=== PATIENT | male | born 1970 | race Caucasian/White ===

== ENCOUNTER → 2020-06-27 | Outpatient (CLI) | payer MEDICARE, OTHER ==
--- NOTE | 2020-06-27 20:33 | EST ---
EXERCISE STRESS PROCEDURE PERFORMED: Exercise treadmill stress test. INDICATION: Chest pain. STRESS DATA: Heart rate is 82, pressure is 151/82 mmHg. Baseline EKG showed sinus mechanism. The patient exercised on the treadmill according to Paul protocol for a total of 5 minutes and achieved 7.0 METS. Max heart rate was 148, which is about 87% of maximum predicted heart rate. Maximum blood pressure was 201/86 mmHg. Clinically the patient did not have any symptoms of chest pain or chest discomfort and the EKG did not show any significant ST or T-wave abnormalities concerning for ischemia. CONCLUSION: 1. Good exercise tolerance. 2. Normal EKG in response to exercise. 3. Essentially normal stress test for the patient. MMODL / IJN: [id number] /
== END | disposition home or self-care (01) ==
LOC: RADNMMAIN 10:20
PROVIDERS: ATTEND Family Medicine
DX: R68.89 Other general symptoms and signs (principal)
CPT/HCPCS: 93017

== ENCOUNTER 2021-02-21 14:41 | Emergency (ER) | payer MEDICARE, OTHER ==
[2021-02-21 15:05] VITALS: BP 136/83; PULSE 87; RESP 17; TEMP 98.1
[2021-02-21] MEDS ORDERED: KETOROLAC 15 MG/ML 1 ML VIAL IM STA (16:00)
[2021-02-21] MEDS ORDERED: CYCLOBENZAPRINE 10 MG TAB PO STA (16:00)
--- NOTE | 2021-02-21 16:07 | ED ---
Back Pain HPI - General Chief Complaint: Back Pain/Injury Stated Complaint: Back Pain Time Seen by Provider: 02/21/21 15:07 Source: patient, RN notes reviewed Limitations: no limitations - History of Present Illness Initial Comments: 50-year-old white male, alert and oriented 4, presents to the emergency room with complaints of left leg pain for 2 weeks and right leg pain for one week. Patient states seen his primary care doctor Dr Hidalgo last week and was told to get bilateral knee braces and a back brace. Patient states has not received any relief from braces. Patient denies any incontinence, or saddle anesthesia. Patient denies any injury, denies any nausea, vomiting, diarrhea or fevers. Patient states has had this pain in the past., resolved with exercise. History of diabetes no other medical history. Patient states has not tried any Tylenol or Motrin. MD Complaint: back pain -: week(s) (2) Radiation: buttocks, left leg, right leg Severity scale (1-10): 6 Quality: other (shooting, cramping) Consistency: intermittent Improves With: sitting upright Worsens With: walking Associated Symptoms: denies other symptoms Treatments Prior to Arrival: other (b/l knee and back braces) - Related Data Home Medications Medication Instructions Recorded Confirmed Propranolol [Inderal] 10 mg PO BID 09/07/16 09/07/16 metFORMIN HCL [metFORMIN HCL ER] 1,000 mg PO DAILY 09/07/16 09/07/16 Previous Rx's Medication Instructions Recorded Cyclobenzaprine [Flexeril] 10 mg PO TID PRN #15 tab 02/21/21 Naproxen [Naprosyn] 500 mg PO Q12HR 10 Days #20 tab 02/21/21 Allergies Allergy/AdvReac Type Severity Reaction Status Date / Time environment Allergy Cough Uncoded 09/07/16 13:03 environmental Allergy Cough Uncoded 09/07/16 13:03 Review of Systems ROS Statement: Those systems with pertinent positive or pertinent negative responses have been documented in the HPI. ROS Other: All systems not noted in ROS Statement are negative. Past Medical History Past Medical History: Diabetes Mellitus History of Any Multi-Drug Resistant Organisms: None Reported Past Anesthesia/Blood Transfusion Reactions: No Reported Reaction Past Psychological History: No Psychological Hx Reported Smoking Status: Never smoker Past Alcohol Use History: None Reported Past Drug Use History: None Reported General Exam Limitations: no limitations General appearance: alert, in no apparent distress Head exam: Present: atraumatic, normocephalic, normal inspection Eye exam: Present: PERRL, EOMI. Absent: scleral icterus, conjunctival injection, periorbital swelling Neck exam: Present: normal inspection, full ROM. Absent: tenderness, meningismus, lymphadenopathy Cardiovascular Exam: Present: regular rate GI/Abdominal exam: Present: soft, normal bowel sounds. Absent: distended, te nderness, guarding, rebound, rigid Extremities exam: Present: normal inspection, full ROM, normal capillary refill. Absent: tenderness, pedal edema, joint swelling, calf tenderness Back exam: Present: normal inspection, other. Absent: tenderness (lumbar / sacral spine tenderness with palpation), CVA tenderness (R), CVA tenderness (L) Neurological exam: Present: alert, oriented X3 Psychiatric exam: Present: normal affect, normal mood Skin exam: Present: warm, dry, intact, normal color. Absent: rash Course Vital Signs 02/21/21 15:01 Temperature 98.1 F Pulse Rate 87 Respiratory 17 Rate Blood Pressure 136/83 O2 Sat by Pulse 96 Oximetry Medical Decision Making - Medical Decision Making Patient denies injury, complains of low back pain shooting down both legs started in the right leg and radiates on the back of the right thigh and then left lower back rate on the left side patient seemed primary care doctor for this already and is was prescribed back in knee braces. Patient denies any saddle anesthesias, no systemic signs of fever, nausea vomiting or diarrhea. His medical history is of diabetes and obesity. Patient directed to follow up with Dr. Hidalgo his primary care doctor for continuation of care and possible MRI. Patient will be treated with Flexeril and Naproxen for pain control. Case discussed with patient and Dr. Nicholas both agreeable to this plan. Disposition Clinical Impression: Sciatica Disposition: HOME SELF-CARE Condition: Good Instructions (If sedation given, give patient instructions): Acute Low Back Pain (ED) Additional Instructions: Take this medication as prescribed and follow-up with your doctor next week for continuation of care and possible MRI. Prescriptions: Cyclobenzaprine [Flexeril] 10 mg PO TID PRN #15 tab PRN Reason: Muscle Spasm Naproxen [Naprosyn] 500 mg PO Q12HR 10 Days #20 tab Is patient prescribed a controlled substance at d/c from ED?: No Referrals: Espinoza Hidalgo DO [Primary Care Provider] - 1-2 days Time of Disposition: 16:57
== END 2021-02-21 17:00 | disposition home or self-care (01) ==
LOC: EC 14:41
DX: M54.30 Sciatica, unspecified side (principal); E11.9 Type 2 diabetes mellitus without complications; Z79.84 Long term (current) use of oral hypoglycemic drugs
CPT/HCPCS: 99283; 96372; J1885

== ENCOUNTER → 2021-02-23 | Outpatient (CLI) | payer MEDICARE, OTHER ==
--- NOTE | 2021-02-23 14:29 | US ---
EXAMINATION TYPE: US venous doppler duplex LE BI DATE OF EXAM: 02/23/2021 12:32 PM COMPARISON: NONE CLINICAL HISTORY: 50-year-old male M79.652 Pain in left thigh,M79.651 Pain in Rt thigh. Bilat. leg cr amping SIDE PERFORMED: bilateral TECHNIQUE: The lower extremity deep venous system is examined utilizing real time linear array sonog diane with graded compression, doppler sonography and color-flow sonography. FINDINGS: VESSELS IMAGED: Common Femoral Vein Deep Femoral Vein Greater Saphenous Vein * Femoral Vein Popliteal Vein Small Saphenous Vein * Proximal Calf Veins (* superficial vessels) Right Leg: no evidence of DVT Left Leg: no evidence of DVT IMPRESSION: No evidence for DVT within the bilateral lower extremities imaged from the groin to the upper calves.
== END | disposition home or self-care (01) ==
LOC: RADUSWWP 12:05
PROVIDERS: ATTEND Family Medicine
DX: M79.652 Pain in left thigh (principal); M79.651 Pain in right thigh
CPT/HCPCS: 93970

== ENCOUNTER → 2021-02-26 | Outpatient (CLI) | payer MEDICARE, OTHER ==
--- NOTE | 2021-02-26 12:22 | XR ---
EXAMINATION TYPE: XR lumbar spine 2 or 3V DATE OF EXAM: 02/26/2021 CLINICAL HISTORY: pain TECHNIQUE: Three views of the lumbar spine are submitted. COMPARISON: None. FINDINGS: There are 5 lumbar type vertebral bodies identified. The lumbar spine shows satisfactory alignment w ithout evidence of acute fracture or dislocation. Vertebral body heights are within normal limits. Moderate degenerative change L4-5 and L5-S1. Grade 1 anterolisthesis L4 and L5. Severe facet joint ar thropathy. The overlying soft tissue appears unremarkable. IMPRESSION: No acute fracture or dislocation is seen in the lumbar spine. ICD 10 NO FRACTURE, INITIAL EVALUATION
== END | disposition home or self-care (01) ==
LOC: RADXRMAIN 11:35
PROVIDERS: ATTEND Nurse Practitioner Family
DX: M54.40 Lumbago with sciatica, unspecified side (principal)
CPT/HCPCS: 72100

== ENCOUNTER → 2021-05-09 | Outpatient (CLI) | payer MEDICARE, OTHER | END | disposition home or self-care (01) | LOC: RADMRIMAIN 13:23 | PROVIDERS: ATTEND Orthopaedic Surgery | DX: Z53.9 Procedure and treatment not carried out, unspecified reason (principal) ==

== ENCOUNTER → 2021-05-19 | Outpatient (CLI) | payer MEDICARE, OTHER ==
--- NOTE | 2021-05-19 18:33 | CONS ---
CONSULTATION REASON FOR CONSULTATION: Sleep apnea. HISTORY OF PRESENT ILLNESS: A 50-year-old male patient coming to see me for sleep apnea. Going to back in the records, I saw this patient back in September of 2016. At that time, he had issues with sleep apnea and I asked him to bring his machine for him to be re-evaluated and reinstated on his CPAP therapy. Nevertheless, the patient did not show up. Note that the patient has some intellectual impairment and he has a slow speech. However, he is appropriate. He does have some long-term intellectual limitations and he has been on SSI disability. He used to live in the [facility] and he moved to [facility] in February of 2016. Note that the patient was diagnosed having ARNAV in [facility] through a sleep center and at that time he was given CPAP unit which he used for quite some time and ultimately he lost the machine and has been off treatment since. He is trying to reinstate his CPAP treatment for now. Note that the patient has loud snoring, he quits breathing at night as reported by his family members and wakes up with a dry mouth in the morning. He has nocturia. He goes to bed around 10:30 pm wakes up 8:00 am in the morning and he is quite somnolent and sleepy during the day. Takes naps. He is trying to lose weight. He drinks around a 12 pack Mountain Dew on a daily basis to get himself stimulated. His current weight is 267 which is lower compared to a few years back. Nevertheless, he continues to have typical features of obstructive sleep apnea. No sleep paralysis. No hallucinations. No cataplexy. No dreams. No nightmares. No night terrors. No other complaints otherwise. PAST MEDICAL HISTORY: Morbid obesity, obstructive sleep apnea, hypertension, diabetes mellitus, hyperlipidemia, chronic back pain involving lumbar disk disease L3 through L5 and intellectual limitation. PAST SURGICAL HISTORY: Includes a cyst removed from the anal/perianal area and right upper extremity ORIF for a fracture. ALLERGIES: Not known. MEDICATIONS ARE: Metformin, Januvia, simvastatin, fenofibrate, Naprosyn, propranolol, and cyclobenzaprine. SOCIAL: Nonsmoker. No history of alcoholism. No history of IV drugs. FAMILY HISTORY: Positive for sleep apnea in his sister. Sister also has epilepsy. Mother has COPD. Mother has diabetes mellitus. Mother has also chronic kidney disease. REVIEW OF SYSTEMS: Fourteen-point review of system was done and positive findings are mentioned above in the history of present illness. He has cognitive impairment and speech impairment and he is able to provide history, yet overall his ability to give details and provide detailed history is quite limited due to his intellectual impairment. He is somnolent and sleepy. He drinks excessive amounts of Mountain Dew on a daily basis. His weight has been fluctuating, although is recently down. No sleepwalking. No sleep talking. No hallucinations. No cataplexy. Occasional headaches. No seizure activity has been noted. PHYSICAL EXAMINATION: VITAL SIGNS: BP is 98/71, pulse is 75, respirations 16, temperature 96.3, saturation 96% on room air. Height is 5 feet 7 inches, weight is 267, neck size is 19 inches and BMI is 41.4. [place] score is at 13. GENERAL APPEARANCE: Calm, comfortable, no acute distress. HEENT: Head is atraumatic, normocephalic. NECK: Supple. No JVD. No goiter or neck masses. Mallampati class 4. Some mild tonsillar enlargement bilaterally. LUNGS: Clear to auscultation. HEART: Heart sounds are regular rate and rhythm, normal S1, S2. No S3, S4. No murmurs. ABDOMEN: Soft, nontender, no organomegaly. EXTREMITIES: No edema, no cyanosis or clubbing. NEUROLOGIC: Awake and alert. Cognitive impairment. Intellectual impairment as discussed. IMPRESSION: 1. Symptomatic obstructive sleep apnea. The patient has been diagnosed having ARNAV back in 2016 through a sleep center in [place], [place]. He currently has symptomatic disease. He does not have any functional CPAP machine and he is requesting a re-evaluation. His current [place] score is up to 13. He has excessive hypersomnia and has typical clinical and anatomic features to suggest ARNAV. 2. Obesity with a BMI of 41.4 with interval weight. 3. Diabetes mellitus. 4. Hypertension. 5. Hyperlipidemia. 6. Chronic back pain. PLAN: 1. Set up this patient for a screening polysomnogram. 2. Set up this patient for a CPAP titration following his polysomnogram. 3. Encourage weight loss. 4. Optimize sleep hygiene measures. 5. Will continue to follow up this patient's sleep center and hopefully within the next few weeks should be able to diagnose and reinstate his CPAP treatment. We will continue to follow. MMODL / IJN: [id number] /
== END ==
LOC: SLEEP 14:49
PROVIDERS: ATTEND Internal Medicine Critical Care Medicine
DX: G47.33 Obstructive sleep apnea (adult) (pediatric) (principal); E66.01 Morbid (severe) obesity due to excess calories; E11.9 Type 2 diabetes mellitus without complications; E78.5 Hyperlipidemia, unspecified; M54.5 Low back pain; I10 Essential (primary) hypertension; Z79.84 Long term (current) use of oral hypoglycemic drugs; Z68.41 Body mass index [BMI] 40.0-44.9, adult; Z79.899 Other long term (current) drug therapy
CPT/HCPCS: 99211

== ENCOUNTER → 2021-09-29 | Outpatient (CLI) | payer MEDICARE, OTHER ==
--- NOTE | 2021-09-29 14:53 | PN ---
PROGRESS NOTE Driss is 51, diagnosed having obstructive sleep apnea. The patient was offered CPAP therapy and the patient is coming in for a compliancy check. Note that the patient was diagnosed having mild obstructive sleep apnea, AHI of 13.3. The disease was worse during REM sleep and was as high as 50.6. The patient was demonstrating severe nocturnal oxygen desaturation with a minimum pulse ox of 45%. The patient is currently utilizing an APAP unit. The patient was given a ResMed AirSense 11 and the patient's current setting is a pressure minimum of 7 and a maximum of 15. The patient is using a Vitera small-sized full-face mask. His starting pressure is at 5 with a humidity level of 6. On today's evaluation, the patient has demonstrated excellent use. He has been averaging around 7.49 hours of CPAP use per night and the AHI is down to 2.6. Leak is on the order of 5 L/minute and the average pressure delivered by the machine is around 12.4 cm of water. Clinically, the patient is feeling better, less somnolent and sleepy during the day. Sleep quality is improved and he seems to be committed to ongoing CPAP therapy. REVIEW OF SYSTEMS: Fourteen-point review of system was done. Positive findings are all mentioned in history of present illness. Otherwise negative. PHYSICAL EXAMINATION: BP is 130/74, pulse 89, respirations 16. [place] score is 10. Saturation 97% on room air. Temperature 96.9, weight is 275. GENERAL APPEARANCE: Calm, comfortable. HEAD: Atraumatic, normocephalic. Neck is supple. No JVD. No goiter or neck masses. Mallampati class IV. LUNGS: Diminished; otherwise clear. Heart sounds are regular rate and rhythm. Normal S1, S2. No S3, S4. No murmurs. ABDOMEN: Soft, nontender. No organomegaly. EXTREMITIES: No edema. No cyanosis or clubbing. IMPRESSION: 1. Obstructive sleep apnea, AHI of 13, worse during REM sleep. The patient underwent successful CPAP therapy. 2. Chronic hypersomnia, improving. [place] score is down to 10. 3. Diabetes mellitus. 4. Hypertension. 5. History of snoring, recovered with CPAP therapy. 6. Obesity with a weight of 275 and body mass index of 41. 7. Chronic back pain. 8. Hyperlipidemia. PLAN: 1. Continue CPAP therapy at the same level of pressure. 2. Continue the Vitera small-sized full-face mask. 3. Compliance data was checked and the treatment is successful. 4. See me back in one year's time in followup. No other active issues for now. MMODL / IJN: [id number] /
== END ==
LOC: SLEEP 13:19
PROVIDERS: ATTEND Internal Medicine Critical Care Medicine
DX: G47.33 Obstructive sleep apnea (adult) (pediatric) (principal); E11.9 Type 2 diabetes mellitus without complications; I10 Essential (primary) hypertension; E66.9 Obesity, unspecified; M54.50 Low back pain, unspecified; E78.5 Hyperlipidemia, unspecified; Z68.41 Body mass index [BMI] 40.0-44.9, adult; Z99.89 Dependence on other enabling machines and devices

== ENCOUNTER → 2022-06-08 | Outpatient (CLI) | payer MEDICARE, OTHER ==
--- NOTE | 2022-06-08 15:07 | P.PN ---
Subjective Progress Note Date: 06/08/22 On 06/08/2022, another compliancy evaluation on this patient.. This patient is known to have obstructive sleep apnea the patient has an AHI of 13 worse during REM sleep. He was offered CPAP therapy. Initially he did not demonstrate compliance. The patient was having some medical issues. This did not qualify for CPAP. However, subsequent compliancy evaluation was done in September 2021 showed excellent usage as the patient was averaging approximately 7 hours of CPAP use per night and history was extremely successful. The [employer] company, [employer] is considering another CPAP titration on this patient. Nevertheless, on today's compliancy and based on a 30 day compliancy and data collected between 05/09/2022 and 06/07/2022 showed that the patient has been utilizing the machine every night and he has achieved more than 4 hours of usage 90% of the time. The average machine use is around 8 hours and 2 minutes. The patient remains on a Pap more than a minimum pressure of 7 and a maximum pressure of 15 with a C-Flex of 3. The AHI is down to 1.8. Leak is in order of 7 L per minute and the P95 pressure from the machine as recorded his at 13.6 cm of water. He is using a fullface mask and the patient is extremely compliant. Has no complaint. No chest pain. No shortness of breath. No major hypersomnia and sleepiness during the day. He continues to benefit from treatment. Objective - Exam The blood pressure is 145/94 with a pulse of 85 and respiration of 18 and the weight is at 282 with a temperature 97.3 and the patient has an [place] score of 11. Oxygenation is 97% on room air. The patient appeared well nourished and normally developed. Vital signs as documented. Head exam is unremarkable. No scleral icterus or corneal arcus noted. Neck is without jugular venous distension, thyromegaly, or carotid bruits. Carotid upstrokes are brisk bilaterally. Lungs are clear to auscultation and percussion. Cardiac exam reveals the PMI to be normally sized and situated. Rhythm is regular. First and second heart sounds normal. No murmurs, rubs or gallops. Abdominal exam reveals normal bowel sounds, no masses, no organomegaly and no aortic enlargement. Extremities are nonedematous and both femoral and pedal pulses are normal.Examination of the skin revealed no evidence of significant rashes, suspicious appearing nevi or other concerning lesions.Neurologically, the patient is awake and alert and the patient does not have any focal neurological deficit. Cranial nerves are essentially intact. Assessment and Plan Plan: Obstructive sleep apnea, AHI of 13, worse during REM and the patient has demonstrated excellent compliance over the past months. Clinically improved. Chronic hypersomnia, improved Obesity, current body weight is 282 pounds. Hypertension Diabetes mellitus Chronic back pain Hyperlipidemia Plan We will contact the DME to see there is a need for another titration. From the sleep standpoint, the patient has demonstrated excellent compliance and clinical response to CPAP therapy and I would suggest maintaining the same APAP pressures for now with a full face mask. The patient will see back in a year's time. We'll do a CPAP titration only if this is something that is needed by the insurance to approve his CPAP payments. Encourage further weight loss. Sleep hygiene measures are good. Hypersomnia has recovered. No snoring. Refill supplies. We'll continue to follow.
== END ==
LOC: SLEEP 13:43
PROVIDERS: ATTEND Internal Medicine Critical Care Medicine
DX: G47.33 Obstructive sleep apnea (adult) (pediatric) (principal); E66.9 Obesity, unspecified; I10 Essential (primary) hypertension; E11.9 Type 2 diabetes mellitus without complications; G89.29 Other chronic pain; M54.50 Low back pain, unspecified; E78.5 Hyperlipidemia, unspecified; Z99.89 Dependence on other enabling machines and devices; Z91.09 Other allergy status, other than to drugs and biological substances

== ENCOUNTER → 2023-07-28 | Outpatient (CLI) | payer MEDICARE, OTHER ==
--- NOTE | 2023-07-28 13:20 | XR ---
3 views right knee. DATE: 07/28/2023. COMPARISON: None available. CLINICAL HISTORY: Chronic pain. IMPRESSION: There is no fracture, subluxation or dislocation. There is moderate degenerative joint space narrowing in the medial compartment and mild in the latera l compartment. [id number] patellofemoral compartment osteophytosis is also seen. Marginal spurr ing is seen around the joint margins. There is a large loose body within the suprapatellar space measuring 3.7 x 1.8 cm in diameter. No sig nificant fluid is otherwise seen.
== END | disposition home or self-care (01) ==
LOC: RADXRMAIN 10:58
PROVIDERS: ATTEND Family Medicine
DX: M17.0 Bilateral primary osteoarthritis of knee (principal); M23.41 Loose body in knee, right knee

== ENCOUNTER → 2023-12-26 | Outpatient (CLI) | payer MEDICARE, OTHER | END | disposition home or self-care (01) | LOC: LABPAT 12:22 | PROVIDERS: ATTEND Orthopaedic Surgery | DX: Z01.812 Encounter for preprocedural laboratory examination (principal); M17.11 Unilateral primary osteoarthritis, right knee; Z22.322 Carrier or suspected carrier of Methicillin resistant Staphylococcus aureus | CPT/HCPCS: 87070 ==

== ENCOUNTER → 2024-05-31 | Outpatient (CLI) | payer MEDICARE | END | disposition home or self-care (01) | LOC: LABPAT 09:25 | PROVIDERS: ATTEND Orthopaedic Surgery | DX: Z01.812 Encounter for preprocedural laboratory examination (principal); M17.12 Unilateral primary osteoarthritis, left knee; Z22.322 Carrier or suspected carrier of Methicillin resistant Staphylococcus aureus | CPT/HCPCS: 87070 ==

== ENCOUNTER → 2024-07-11 | Outpatient (CLI) | payer MEDICARE, OTHER ==
[2024-07-11 15:27] LABS: Basophils # (A) 0.07 X 10*3/uL (0.00-0.10); Basophils % (A) 0.8 %; Eosinophils # (A) 0.49 X 10*3/uL (0.04-0.35); Eosinophils % (A) 5.4 %; HCT 46.7 % (39.6-50.0); Lymphocytes # (A) 2.51 X 10*3/uL (0.90-5.00); Lymphocytes % (A) 27.7 %; MCH 26.8 pg (27.0-32.0); MCHC 32.1 g/dL (32.0-37.0); MCV 83.5 FL (80.0-97.0); Mean Platelet Volume 9.4 FL (9.5-12.2); Monocytes # (A) 0.57 X 10*3/uL (0.20-1.00); Monocytes % (A) 6.3 %; NRBC Per 100 WBC 0 X 10*3/uL (0.00-0.01); Neutrophils # (A) 5.25 X 10*3/uL (1.80-7.70); Neutrophils % (A) 57.8 %; Platelet Count 301 X 10*3/uL (140-440); RBC 5.59 X 10*6/uL (4.40-5.60); RDW 13.2 % (11.5-14.5); WBC 9.07 X 10*3/uL (4.50-10.00)
[2024-07-11 15:52] LABS: BUN/Creat Ratio 32.17 Ratio (12.00-20.00); Blood Urea Nitrogen 19.3 mg/dL (9.0-27.0); Calcium 9.3 mg/dL (8.7-10.3); Carbon Dioxide 27.4 mmol/L (21.6-31.8); Chloride 97 mmol/L (96-109); Glucose 138 mg/dL (70-110); Potassium 4.5 mmol/L (3.5-5.5); Sodium 136 mmol/L (135-145)
[2024-07-11 16:07] LABS: INR 0.99 sec (0.93-1.11); Prothrombin Time 10.7 sec (9.9-11.9)
== END | disposition home or self-care (01) ==
LOC: LABPAT 09:31
PROVIDERS: ATTEND Orthopaedic Surgery
DX: M17.12 Unilateral primary osteoarthritis, left knee (principal)
CPT/HCPCS: 36415; 80048; 85025; 85610

== ENCOUNTER 2024-07-16 07:41 | Observation (INO) | payer MEDICARE, OTHER ==
[2024-07-11 09:09] VITALS: BMI 41.0
--- NOTE | 2024-07-15 13:04 | HP ---
HISTORY AND PHYSICAL DATE OF SCHEDULED SURGERY: 07/16/2024. HISTORY OF PRESENT ILLNESS: Drsis Zayas is a 53-year-old gentleman, seen with symptomatic left knee osteoarthritis. We discussed options regarding treatment. He elected to proceed with left total knee arthroplasty. Consents obtained. Medical clearance was provided by Mic Tubbs. PAST MEDICAL HISTORY: Hypertension, hyperlipidemia, and [id number] diabetes. PAST SURGICAL HISTORY: Right total knee arthroplasty. DAILY MEDICATIONS: 1. Januvia. 2. Metformin. 3. Propranolol. 4. Simvastatin. 5. Ibuprofen. ALLERGIES: None. SOCIAL HISTORY: Denies tobacco use. PHYSICAL EVALUATION OF LEFT KNEE: His range of motion is negative 1/2 to 130 degrees. Tenderness along the medial joint line. Mild effusion. Crepitance along the medial patellofemoral compartments with range of motion. Pain with patellofemoral compression. Ligaments stable. Hip rotation without pain. Distal neurovascular exam is intact. IMAGING STUDIES: Radiographs of the left knee reveal severe osteoarthritic changes. IMPRESSION: 1. Left knee osteoarthritis. 2. Hypertension. 3. Hyperlipidemia. 4. Vru-mwhiyiv-geshqjnsu diabetes. PLAN: Left total knee arthroplasty. MMODL / IJN: [id number] /
[~2024-07-16 07:41] MED LIST: HYDROmorphone 0.5 MG/0.5 ML SYRINGE IVP PRN; TRANEXAMIC 1,000 MG/100ML-NACL 1,000 MG in SALINE 1 100ML.BAG IVPB PRN
[2024-07-16] MEDS: IV FLUID CONTINUATION 1,000 ML IV ONE ×2 (08:00→12:43)
[2024-07-16] MEDS: DEXAMETHASONE SOD PHOSPHATE 4 MG/ML 1 ML VIAL IV ONE (08:14)
[2024-07-16] MEDS: MELOXICAM 7.5 MG TAB PO PRN (08:14)
[2024-07-16] MEDS: ONDANSETRON 4 MG/2 ML VIAL IVP ONE (08:14)
[2024-07-16] MEDS: SCOPOLAMINE 1 MG/72 HR PATCH TRANSDERM ONE (08:14)
[2024-07-16] MEDS: LACTATED RINGERS 1,000 ML IV SCH ×2 (08:14→14:27)
[2024-07-16] MEDS: ACETAMINOPHEN TAB 500 MG TAB PO PRN (08:15)
[2024-07-16] MEDS: fentaNYL (PF) 50 MCG/ML 2 ML AMP IVP PRN (08:48)
[2024-07-16] MEDS: MIDAZOLAM 2 MG/2 ML VIAL IV PRN (08:48)
[2024-07-16 08:57] LABS: Glucose,Whole Blood 129 mg/dL (70-110)
--- NOTE | 2024-07-16 09:21 | P.ANPRN ---
Procedure Note - Anesthesia - Nerve Block Performed Left Adductor Canal Infusion Time Out Performed: Yes Date of Procedure: 07/16/24 Procedure Start Time: 08:47 Procedure Stop Time: 08:57 Location of Patient: PreOp Indication: Acute Post-Operative Pain, Requested by Surgeon Sedation Type: Sedate with meaningful contact maintained Preparation: Sterile Prep, Sterile Dressing Position: Supine Catheter: Indwelling Needle Types: Pajunk Needle Gauge: 18 Ultrasound used to visualize needle placement: Yes Ultrasound used to observe medication spread: Yes Injectate: 0.5% Ropivacaine (see comment for volume) (20 ml + 10ml NS) Blood Aspirated: No Pain Paresthesia on Injection Noted: No Resistance on Injection: Normal Image Stored and Saved: Yes Events: Uneventful and Well Tolerated
--- NOTE | 2024-07-16 09:22 | P.ANPRN ---
Procedure Note - Anesthesia - Nerve Block Performed Left iPack Single Time Out Performed: Yes Date of Procedure: 07/16/24 Procedure Start Time: 08:58 Procedure Stop Time: 09:03 Location of Patient: PreOp Indication: Acute Post-Operative Pain, Requested by Surgeon Sedation Type: Sedate with meaningful contact maintained Preparation: Sterile Prep Position: Right Lateral Needle Types: Pajunk Needle Gauge: 21 Ultrasound used to visualize needle placement: Yes Ultrasound used to observe medication spread: Yes Injectate: 0.5% Ropivacaine (see comment for volume) (20 ml + 10 ml NS + 4 mg Dexamethasone) Blood Aspirated: No Pain Paresthesia on Injection Noted: No Resistance on Injection: Normal Image Stored and Saved: Yes Events: Uneventful and Well Tolerated
[2024-07-16] MEDS ORDERED: KETAMINE HCL IN 0.9 % NACL 50 MG/5 ML SYRINGE ONE (09:57)
[2024-07-16] MEDS ORDERED: HYDROmorphone (PF) 1 MG/ML ONE (09:57)
[2024-07-16] MEDS ORDERED: LIDOCAINE 1% INJ 10MG/ML (20 ML MDV) ONE (09:57)
[2024-07-16] MEDS ORDERED: TRANEXAMIC 1,000 MG/100ML-NACL PREMIX BAG ONE (09:57)
[2024-07-16] MEDS ORDERED: SUCCINYLCHOLINE CHLORIDE 200 MG/10 ML VIAL IV ONE (09:57)
[2024-07-16] MEDS ORDERED: DEXAMETHASONE SOD PHOSPHATE 4 MG/ML 1 ML VIAL ONE (09:57)
[2024-07-16] MEDS ORDERED: fentaNYL (PF) 50 MCG/ML 2 ML AMP ONE (09:57)
[2024-07-16] MEDS ORDERED: ROPIVACAINE 5 MG/ML 30 ML VIAL ONE (09:57)
[2024-07-16] MEDS ORDERED: PROPOFOL 10 MG/ML 20 ML VIAL IV ONE (09:57)
[2024-07-16] MEDS ORDERED: SODIUM CHLORIDE 0.9% (PF) 10 ML VIAL ONE (09:57)
[2024-07-16] MEDS: ceFAZolin 1,000 MG in SODIUM CHLORIDE 0.9% 1,000 ML IRRIGATION ONE (10:32)
[2024-07-16] MEDS ORDERED: ONDANSETRON 4 MG/2 ML VIAL IVP PRN (11:48)
[2024-07-16] MEDS ORDERED: HYDROcodone/APAP 5-325MG 1 EACH TAB PO PRN (11:48)
[2024-07-16] MEDS ORDERED: HYDROmorphone 0.5 MG/0.5 ML SYRINGE IVP PRN ×2 (11:48)
[2024-07-16] MEDS ORDERED: NALOXONE 0.4 MG/ML 1 ML VIAL IV PRN (11:48)
[2024-07-16] MEDS ORDERED: HYDROmorphone 1 MG/ML 1 ML SYRINGE IVP PRN (11:48)
--- NOTE | 2024-07-16 11:48 | P.OP ---
Date of Procedure: 07/16/24 Preoperative Diagnosis: Left knee osteoarthritis Postoperative Diagnosis: Left knee osteoarthritis Procedure(s) Performed: Left total knee arthroplasty Implants: 1. DePuy attune size 6 left cruciate retaining cemented femur 2. DePuy attune size 6 fixed-bearing cemented tibial baseplate 3. DePuy attune size 6 fixed-bearing cruciate retaining 8 mm polyethylene tibial insert 4. DePuy attune 38 mm all polyethylene cemented patella Anesthesia: GETA, regional (Adductor canal catheter, iPAQ block) Surgeon: [facility] Coordinator #1: Thanh Mac Estimated Blood Loss (ml): 45 Pathology: none sent Condition: stable Disposition: PACU Indications for Procedure: 53-year-old patient seen with symptomatic left knee osteoarthritis. After having treatment options discussed, he elected to proceed with total knee arthroplasty. Operative Findings: See description of procedure Description of Procedure: Patient was taken to the operative suite after having an adductor canal catheter placed by the department of anesthesia. Patient underwent a general anesthetic by the department of anesthesia. Patient was given preoperative IV intake antibiotics and TXA. A well-padded tourniquet was placed about the left lower extremity. The lower extremity was then prepped and draped in the normal sterile orthopedic fashion. The extremity was elevated, a tourniquet was ins ufflated to 300. A standard anterior incision was made sharply through skin. Dissection was taken down through the subcutaneous soft tissues down to the extensor mechanism. A medial arthrotomy was performed, patella was everted and knee was flexed. There was advanced osteoarthritis noted. I introduced my distal intramedullary femoral drill. I then introduced the distal femoral cutting jig. Erasto CHINO secured the cutting jig with 2 pins. I held retractors in position while Erasto CHINO performed the distal femoral resection through the guide area we now removed her distal femoral cutting guide. We now placed our 4-in-1 femoral cutting block and positioned and it was secured with 2 pins by Erasto CHINO while I held the block in position. The distal femoral finishing was now completed. A proximal tibial cutting guide was positioned. I held the guide in the appropriate position with both hands well Erasto CHINO inserted stabilizing pins into the guide. Proximal tibial cut was made. We now placed a trial femoral component into position, along with an appropriate size tibial tray and insert. We now took the knee through range of motion and had full extension good flexion and good overall soft tissue balance noted. The patella was everted and stabilized with 2 towel clips held by Erasto CHINO while I performed a flush with patellar quad tendon utilizing a fresh sawblade. We templated the patella, appropriate drill holes were made. An appropriate trial patella was positioned, knee was taken through full range of motion with the patella tracking very nicely. The trial patella was removed. Drill holes were made through the femoral component. All trial components were removed after marking off the appropriate rotation of the tibia. Retractors were now positioned along the proximal tibia. An appropriate keel punch was made with the appropriate size tibial guide by myself on Erasto CHINO assisted by holding retractors. At this point appropriate size implants were chosen and opened. The joint was irrigated copiously with pulse lavage mechanical irrigation. The wound was irrigated with pulse lavage mechanical irrigation. We mixed antibiotic methylmethacrylate. We placed the knee into flexion. We placed multiple retractors assisted by Erasto CHINO to expose the proximal tibia. Once the methyl methacrylate was ready, the tibial component was cemented into place removing any excess methylmethacrylate form by both myself and Erasto CHINO. The femoral component was cemented into place removing the removing any excess methylmethacrylate performed by both myself and Erasto CHINO. We then inserted the appropriate size polyethylene tibial insert. We made sure that it was locked into position. We took the knee into full extension, and then back in a flexion making sure we had removed any excess methylmethacrylate. The patellar component was then cemented down and secured with clamp. Excess methylmethacrylate removed. We kept the knee in full extension, patellar clamp in position until methylmethacrylate had hardened. Once it had hardened the patellar clamp was removed. The knee was taken through full range of motion. The patella tracked nicely. There was good soft tissue balancing. The tourniquet was now released. Additional hemostasis was achieved via electrocautery. A second gram of TXA was given. The wound again was irrigated with pulse lavage mechanical irrigation. The extensor mechanism was repaired with Ethibond suture. We checked the repair with range of motion and it was stable. The subcutaneous soft tissues were repaired with Vicryl in layers. The skin was approximated with pernio/Dermabond. Sterile dressings were applied followed by loose web roll and Cameron bandage. The patient was transferred to a bed, and taken to recovery in stable and satisfactory condition. Erasto CHINO assisted with this complex procedure.
[2024-07-16 12:36] LABS: Glucose,Whole Blood 196 mg/dL (70-110)
[2024-07-16] MEDS: ROPIVACAINE 1,100 MG, SODIUM CHLORIDE 0.9% 500 ML 330 ML, EMPTY PAIN BALL 1 EACH MISCELLANE PRN (13:12)
--- NOTE | 2024-07-16 13:29 | XR ---
EXAMINATION TYPE: XR knee limited LT DATE OF EXAM: 07/16/2024 1:14 PM CLINICAL INDICATION: Male, 53 years old with history of Evaluation for Postop abnormality and alignme nt; [facility] COMPARISON: None. TECHNIQUE: XR knee limited LT; examined in Frontal, lateral projections. FINDINGS: Status post total knee arthroplasty changes with hardware in appropriate alignment and in tact. No evidence of fracture. Subcutaneous lucencies and lucencies within the joint consistent with surgical changes. IMPRESSION: Status post total knee arthroplasty changes with hardware intact and appropriate alignment. No fractu res identified.
--- NOTE | 2024-07-16 15:08 | P.CONS ---
History of Present Illness - Reason for Consult Type 2 diabetes mellitus - History of Present Illness Patient is admitted for left knee arthroplasty patient is still coming out of anesthesia and not complaining of any pain at this time patient had any fever chills nausea vomiting abdominal pain dysuria patient has history of diabetes mellitus and hypertension blood pressure is slightly elevated at this time. REVIEW OF SYSTEMS: All other systems are negative except those mentioned in the HPI PHYSICAL EXAMINATION: GENERAL: The patient is drowsy and oriented x3, not in any acute distress. Well developed, well nourished. HEENT: Pupils are round and equally reacting to light. EOMI. No scleral icterus. No conjunctival pallor. Normocephalic, atraumatic. No pharyngeal erythema. No thyromegaly. CARDIOVASCULAR: S1 and S2 present. No murmurs, rubs, or gallops. PULMONARY: Chest is clear to auscultation, no wheezing or crackles. ABDOMEN: Soft, nontender, nondistended, normoactive bowel sounds. No palpable organomegaly. MUSCULOSKELETAL: No joint swelling or deformity. EXTREMITIES: No cyanosis, clubbing, or pedal edema. NEUROLOGICAL: Gross neurological examination did not reveal any focal deficits. SKIN: No rashes. Assessment and plan -Left knee arthroplasty: Pain management as per primary service due to prophylaxis as per primary service -Type 2 diabetes mellitus patient will be resumed on her home regimen of Januvia, metformin, Farxiga and will add sliding scale. -Hypertension: Patient is on 5 mg of lisinopril which will be a started as patient blood pressure is still elevated in the perioperative. -Gastroesophageal reflux disease -Sleep apnea uses CPAP machine at home which he patient will be resumed and continue -Hyperlipidemia resumed on statin DVT prophylaxis: As per orthopedic surgery's Past Medical History Past Medical History: Diabetes Mellitus, GERD/Reflux, Hyperlipidemia, Hypertension, Osteoarthritis (OA), Skin Disorder, Sleep Apnea/CPAP/BIPAP Additional Past Medical History / Comment(s): "My heart beats fast", Psoriasis, uses CPAP, "occasional bad headaches". History of Any Multi-Drug Resistant Organisms: None Reported Past Surgical History: Joint Replacement, Orthopedic Surgery Additional Past Surgical History / Comment(s): ORIF distal right arm, pilonidal cyst removed, total right knee replacement. Past Anesthesia/Blood Transfusion Reactions: No Reported Reaction Additional Past Anesthesia/Blood Transfusion Reaction / Comm: Thinks "may have had a blood transfusion with arm surgery", no known problems with blood transfusion. Past Psychological History: No Psychological Hx Reported Additional Psychological History / Comment(s): Has trouble reading some words, needs help spelling, was in special ed courses during school. Smoking Status: Never smoker Past Alcohol Use History: None Reported Past Drug Use History: None Reported - Past Family History Mother Family Medical History: Diabetes Mellitus, Renal Disease Additional Family Medical History / Comment(s): Patient states does not really know much family hx. Father Additional Family Medical History / Comment(s): Dad in penitentiary approx age 70's. Medications and Allergies Home Medications Medication Instructions Recorded Confirmed Type Propranolol [Inderal] 10 mg PO BID@0800,2200 09/07/16 07/16/24 History metFORMIN HCL [metFORMIN HCL ER] 1,000 mg PO BID@0800,1600 09/07/16 07/11/24 History Cyclobenzaprine [Flexeril] 10 mg PO BID@0800,1600 01/06/24 07/11/24 History Fenofibrate 160 mg PO DAILY 01/06/24 07/11/24 History Magnesium 250 mg PO DAILY 01/06/24 07/11/24 History Simvastatin [Zocor] 40 mg PO HS 01/06/24 07/11/24 History sitaGLIPtin [Januvia] 100 mg PO QAM 01/06/24 07/11/24 History Dapagliflozin Propanediol [Farxiga] 10 mg PO QAM 07/11/24 07/11/24 History Ibuprofen 600 mg PO BID 07/11/24 07/11/24 History lisinopriL [Zestril] 5 mg PO HS 07/11/24 07/11/24 History Allergies Allergy/AdvReac Type Severity Reaction Status Date / Time No Known Allergies Allergy Verified 07/16/24 08:08 Physical Exam Vitals: Vital Signs Temp Pulse Pulse Resp BP Pulse Ox 07/16/24 14:00 97.5 F L 84 18 150/86 93 L 07/16/24 13:37 84 16 153/86 94 L 07/16/24 13:21 84 16 142/82 94 L 07/16/24 13:07 83 16 152/83 94 L 07/16/24 12:52 85 16 148/87 94 L 07/16/24 12:37 88 16 175/86 96 07/16/24 12:22 88 16 166/80 97 07/16/24 12:07 97.3 F L 87 15 153/74 95 07/16/24 09:05 68 18 105/57 96 07/16/24 08:11 97.5 F L 69 18 124/85 98 Intake and Output 07/16/24 07/16/24 07/16/24 06:59 14:59 22:59 Intake Total 1301 Output Total 45 Balance 1256 Intake: IV 1301 Output: Estimated Blood Loss 45 Other: Weight 117.1 kg Results Labs: Abnormal Lab Results - Last 24 Hours (Table) 07/16/24 07/16/24 Range/Units 08:36 12:34 POC Glucose (mg/dL) 129 H 196 H (70-110) mg/dL
[2024-07-16] MEDS: metFORMIN 500 MG TAB PO SCH (15:25)
[2024-07-16] MEDS ORDERED: ceFAZolin 3 GM in SODIUM CHLORIDE 0.9% 100 ML IVPB SCH (16:00)
[2024-07-16 16:33] LABS: Glucose,Whole Blood 181 mg/dL (70-110)
[2024-07-16] MEDS: INSULIN ASPART (NovoLOG) 100 UNIT/ML VIAL SQ SCH (16:54)
[2024-07-16] MEDS: lisinopriL 5 MG TAB PO SCH (20:09)
[2024-07-16] MEDS: ASPIRIN 325 MG TAB PO SCH (20:09)
[2024-07-16] MEDS: SENNOSIDES-DOCUSATE SODIUM 1 EACH TAB PO SCH (20:09)
[2024-07-16] MEDS: ATORVASTATIN 20 MG TAB PO SCH (20:09)
[2024-07-16 21:08] LABS: Glucose,Whole Blood 168 mg/dL (70-110)
[2024-07-16] MEDS: PROPRANOLOL 10 MG TAB PO SCH (22:23)
[2024-07-17 05:39] LABS: Glucose,Whole Blood 141 mg/dL (70-110)
[2024-07-17] MEDS: HYDROcodone/APAP 7.5-325MG 1 EACH TAB PO PRN (06:10)
[2024-07-17 08:29] LABS: Basophils # (A) 0.03 X 10*3/uL (0.00-0.10); Basophils % (A) 0.2 %; Eosinophils # (A) 0.06 X 10*3/uL (0.04-0.35); Eosinophils % (A) 0.5 %; HCT 42.1 % (39.6-50.0); Lymphocytes # (A) 1.87 X 10*3/uL (0.90-5.00); Lymphocytes % (A) 15.2 %; MCH 27.6 pg (27.0-32.0); MCHC 33.3 g/dL (32.0-37.0); MCV 82.9 FL (80.0-97.0); Mean Platelet Volume 9.4 FL (9.5-12.2); Monocytes # (A) 0.81 X 10*3/uL (0.20-1.00); Monocytes % (A) 6.6 %; NRBC Per 100 WBC 0 X 10*3/uL (0.00-0.01); Neutrophils # (A) 9.41 X 10*3/uL (1.80-7.70); Neutrophils % (A) 76.3 %; Platelet Count 273 X 10*3/uL (140-440); RBC 5.08 X 10*6/uL (4.40-5.60); RDW 13.1 % (11.5-14.5); WBC 12.33 X 10*3/uL (4.50-10.00)
--- NOTE | 2024-07-17 08:30 | P.PN ---
Progress Note - Text Progress Note Date: 07/17/24 Postoperative day # 1 status post total knee arthroplasty, and adductor canal catheter placed for postoperative analgesia, currently at ropivacaine 0.2% 8 mL per hour and continuous infusion, visual analogue scale is 3/10, patient using oral pain medication for breakthrough pain. Assessment and plan= Acute postoperative pain, adductor canal catheter for pain control, pain is well controlled we'll continue the same management.
[2024-07-17] MEDS: LINAGLIPTIN 5 MG TABLET PO SCH (09:32)
[2024-07-17] MEDS: FENOFIBRATE 160 MG TAB PO SCH (09:32)
[2024-07-17] MEDS: DAPAGLIFLOZIN PROPANEDIOL 10 MG TABLET PO SCH (09:32)
--- NOTE | 2024-07-17 10:22 | P.PN ---
Subjective Progress Note Date: 07/17/24 Principal diagnosis: Status post left total knee arthroplasty Patient evaluated at bedside today, he is resting comfortably. He did ambulate with therapy today just in the room, he does note some increased pain with weightbearing. Pain catheter seems to be working well. Denies any headaches, lightheadedness, chest pain or shortness of breath Objective - Vital Signs Vital signs: Vital Signs Temp 97.8 F 07/17/24 07:24 Pulse 93 07/17/24 08:00 Resp 18 07/17/24 08:00 BP 125/83 07/17/24 07:24 Pulse Ox 93 L 07/17/24 07:24 FiO2 Intake & Output 07/16/24 07/17/24 07/17/24 18:59 06:59 18:59 Intake Total 1301 Output Total 45 1725 Balance 1256 -1725 Weight 117.1 kg Intake: IV 1301 Output: Urine 1725 Estimated Blood Loss 45 Other: Voiding Method Urinal Urinal # Voids 2 - Exam Left lower extremity: Incision is clean, dry, and intact. The foam dressing is in good condition. There is minimal soft tissue swelling and ecchymosis surrounding the medial and lateral aspects of the incision. Calf is soft, no tenderness with palpation. Plantar flexion, dorsiflexion, EHL, FHL are intact. Sensory exam to light touch throughout the extremity is intact, dorsal pedis pulses 2+. - Labs CBC & Chem 7: 07/17/24 04:26 Labs: Abnormal Lab Results - Last 24 Hours (Table) 07/16/24 07/16/24 07/16/24 Range/Units 12:34 16:31 21:06 WBC (4.50-10.00) X 10*3/uL MPV (9.5-12.2) FL Immature Gran # (0.00-0.04) X 10*3/uL Neutrophils # (1.80-7.70) X 10*3/uL POC Glucose (mg/dL) 196 H 181 H 168 H (70-110) mg/dL 07/17/24 07/17/24 Range/Units 04:26 05:38 WBC 12.33 H (4.50-10.00) X 10*3/uL MPV 9.4 L (9.5-12.2) FL Immature Gran # 0.15 H (0.00-0.04) X 10*3/uL Neutrophils # 9.41 H (1.80-7.70) X 10*3/uL POC Glucose (mg/dL) 141 H (70-110) mg/dL Assessment and Plan Assessment: Postoperative day #1 status post left total knee arthroplasty Plan: Pain control, continue with current medications DVT prophylaxis, continue current medications Encourage incentive spirometer Monitor surgical dressing Ice and elevate often PT/OT medical recommendations appreciated Discharge planning: Patient did go to subacute rehab after his first total knee earlier this year, patient has very limited help at home and requires extra assistance, plan is for discharge to subacute rehab in the next 24-48 hours Time with Patient: Less than 30
[2024-07-17 11:31] LABS: Glucose,Whole Blood 147 mg/dL (70-110)
[2024-07-17] MEDS: MULTIVITAMINS, THERA 1 EACH TAB PO SCH (12:40)
[2024-07-17 16:35] LABS: Glucose,Whole Blood 191 mg/dL (70-110)
--- NOTE | 2024-07-17 20:49 | P.PN ---
Subjective Progress Note Date: 07/17/24 Patient is admitted for left knee arthroplasty patient is still coming out of anesthesia and not complaining of any pain at this time patient had any fever chills nausea vomiting abdominal pain dysuria patient has history of diabetes mellitus and hypertension blood pressure is slightly elevated at this time. 07/17/2024 Patient is evaluated in follow up. He is postoperative day #1 left knee arthroplasty. States the pain is controlled to the left knee. Has not worked with PT yet. No acute complaints at this time. White blood cell count 12.33. Review of Systems Constitutional: Denied any fatigue denied any fever. Cardio vascular: denied any chest pain, palpitations Gastrointestinal: denied any nausea, vomiting, diarrhea Pulmonary: Denied any shortness of breath cough Neurologic denied any new focal deficits All inpatient medications were reviewed and appropriate changes in these medications as dictated in the interval history and assessment and plan. PHYSICAL EXAMINATION: GENERAL: The patient is drowsy and oriented x3, not in any acute distress. Well developed, well nourished. HEENT: Pupils are round and equally reacting to light. EOMI. No scleral icterus. No conjunctival pallor. Normocephalic, atraumatic. No pharyngeal erythema. No thyromegaly. CARDIOVASCULAR: S1 and S2 present. No murmurs, rubs, or gallops. PULMONARY: Chest is clear to auscultation, no wheezing or crackles. ABDOMEN: Soft, nontender, nondistended, normoactive bowel sounds. No palpable organomegaly. MUSCULOSKELETAL: No joint swelling or deformity. EXTREMITIES: No cyanosis, clubbing, or pedal edema. NEUROLOGICAL: Gross neurological examination did not reveal any focal deficits. SKIN: No rashes. Assessment and plan -Left knee arthroplasty: Pain management as per primary service dvt to prophylaxis as per primary service -Type 2 diabetes mellitus patient will be resumed on her home regimen of [place] via, metformin, Farxiga and will add sliding scale. -Hypertension: Patient is on 5 mg of lisinopril at HS which will be increased to 10 mg HS. -Gastroesophageal reflux disease -Sleep apnea uses CPAP machine at home which he patient will be resumed and continue -Hyperlipidemia resumed on statin DVT prophylaxis: As per orthopedic surgery's aspirin 325 mg PO BID. GI prophylaxis Full Code The impression and plan of care has been dictated by Adeola Calero, Nurse Practitioner as directed. Dr. Holly MD I have performed a history and physical examination and medical decision making of this patient, discussed the same with the dictator, and agree with the dictators assessment and plan as written, documented as a scribe. Based on total visit time, I have performed more than 50% of this visit. Objective - Vital Signs Vital signs: Vital Signs Temp 97.8 F 07/17/24 07:24 Pulse 93 07/17/24 08:00 Resp 18 07/17/24 08:00 BP 125/83 07/17/24 07:24 Pulse Ox 93 L 07/17/24 07:24 FiO2 Intake & Output 07/16/24 07/17/24 07/17/24 18:59 06:59 18:59 Intake Total 1301 Output Total 45 1725 Balance 1256 -1725 Weight 117.1 kg Intake: IV 1301 Output: Urine 1725 Estimated Blood Loss 45 Other: Voiding Method Urinal Urinal # Voids 2 - Labs CBC & Chem 7: 07/17/24 04:26 Labs: Abnormal Lab Results - Last 24 Hours (Table) 07/16/24 07/16/24 07/17/24 Range/Units 16:31 21:06 04:26 WBC 12.33 H (4.50-10.00) X 10*3/uL MPV 9.4 L (9.5-12.2) FL Immature Gran # 0.15 H (0.00-0.04) X 10*3/uL Neutrophils # 9.41 H (1.80-7.70) X 10*3/uL POC Glucose (mg/dL) 181 H 168 H (70-110) mg/dL 07/17/24 07/17/24 Range/Units 05:38 11:29 WBC (4.50-10.00) X 10*3/uL MPV (9.5-12.2) FL Immature Gran # (0.00-0.04) X 10*3/uL Neutrophils # (1.80-7.70) X 10*3/uL POC Glucose (mg/dL) 141 H 147 H (70-110) mg/dL Assessment and Plan Time with Patient: Less than 30
[2024-07-17 20:57] LABS: Glucose,Whole Blood 145 mg/dL (70-110)
[2024-07-17] MEDS: LACTATED RINGERS 1,000 ML IV SCH (21:42)
[2024-07-17] MEDS: lisinopriL 5 MG TAB PO STA (21:42)
[2024-07-18 05:49] LABS: Glucose,Whole Blood 131 mg/dL (70-110)
[2024-07-18 06:39] VITALS: BP 130/79; PULSE 94; RESP 16; TEMP 97.8
--- NOTE | 2024-07-18 10:09 | P.PN ---
Subjective Progress Note Date: 07/18/24 Principal diagnosis: Status post left total knee arthroplasty Patient evaluated at bedside today, he is resting in his hospital chair. Patient is feeling a lot better today, he has been improving his ambulation with physical therapy. Waiting on authorization for for subacute rehab. Denies any headaches, lightheadedness, chest pain or shortness of breath Objective - Vital Signs Vital signs: Vital Signs Temp 97.8 F 07/18/24 06:37 Pulse 94 07/18/24 07:34 Resp 16 07/18/24 07:34 BP 130/79 07/18/24 06:37 Pulse Ox 95 07/18/24 00:40 FiO2 Intake & Output 07/17/24 07/18/24 07/18/24 18:59 06:59 18:59 Intake Total 120 Output Total 250 150 Balance -250 -30 Intake: Oral 120 Output: Urine 250 150 Other: Voiding Method Urinal Urinal # Voids 6 1 - Exam Left lower extremity: Incision is clean, dry, and intact. The foam dressing is in good condition. There is minimal soft tissue swelling and ecchymosis surrounding the medial and lateral aspects of the incision. Calf is soft, no tenderness with palpation. Plantar flexion, dorsiflexion, EHL, FHL are intact. Sensory exam to light touch throughout the extremity is intact, dorsal pedis pulses 2+. - Labs CBC & Chem 7: 07/17/24 04:26 Labs: Abnormal Lab Results - Last 24 Hours (Table) 07/17/24 07/17/24 07/17/24 Range/Units 11:29 16:33 20:55 POC Glucose (mg/dL) 147 H 191 H 145 H (70-110) mg/dL 07/18/24 Range/Units 05:48 POC Glucose (mg/dL) 131 H (70-110) mg/dL Assessment and Plan Assessment: Postoperative day #2 status post left total knee arthroplasty Plan: Pain control, continue with current medications DVT prophylaxis, continue current medications Encourage incentive spirometer Monitor surgical dressing Ice and elevate often PT/OT medical recommendations appreciated Discharge planning: Plan for discharge to subacute rehab once authorization is obtained Time with Patient: Less than 30
[2024-07-18 11:12] LABS: Glucose,Whole Blood 115 mg/dL (70-110)
--- NOTE | 2024-07-18 11:21 | P.DS ---
Providers Date of admission: 07/16/24 07:42 Expected date of discharge: 07/18/24 Attending physician: Florin Armstrong Consults: 07/16/24 11:48 Consult Physician Routine Consulting Provider: Rima Dunne Consult Reason/Comments: Medical management Do you want consulting provider notified?: Yes Primary care physician: Espinoza [place] Hospital Course: Date of admission: 07/16/2024 Date of discharge: 07/18/2024 Admission diagnosis: Status post left total knee arthroplasty Discharge diagnosis: Same Attending physician: Dr. Armstrong Surgical procedures: Left total knee arthroplasty Brief history: Patient is a 53-year-old male with a history of progressive primary left knee osteoarthritis. At this point patient has failed conservative treatment measures and has opted to proceed with a elective left total knee arthroplasty. Hospital course: Details of patient's surgery can be found in operative report. Patient tolerated the procedure well and was subsequently transported to orthopedic floor. Patient's orthopeidc and medical care was provided daily. Patient had daily laboratory tests performed for evaluation of overall blood counts. Patient had daily physical therapy to include strengthening range of motion as well as education with walker ambulation. Patient was treated with aspirin for their postoperative DVT prophylaxis during their inpatient stay. Patient was noted to have a relatively uneventful postoperative course. Patient reported satisfactory pain control with oral pain medications by postoperative day 1. Patient showed satisfactory progress with physical therapy. Patient moved steadily through the program and had no difficulty meeting the goals by postoperative day 2. Given patient's otherwise satisfactory course and having met physical therapy goals, plan is to discharge patient to subacute rehab on postoperative day 2. Discharge condition/disposition: Patient will be discharged to subacute rehab in stable condition. Discharge medications: Instructions are given on resumption of patient's normal daily medications per primary care recommendation, in addition patient will be prescribed Nicolaus 7.5 mg / 325 mg, senna S, aspirin 81 mg. Discharge instructions: 1. Wound care and infection precautions, keep incision dry and covered while showering, no lotions, creams, moisturizers. No soaking, tubs, pools, hottubs. Do not scrub over the incision. 2. Weight-bear as tolerated with walker / cane until follow-up. 3. Ice and elevate when necessary. Do not exceed 20 minutes per hour with ice pack. 4. Utilize compression sleeve until seen at first follow up appointment. 5. Visiting nursing care. 6. Home physical therapy including home CPM. 7. Pain meds and anticoagulants per prescription. 8. Pain medication has potential to cause constipation. Increase oral fluid and fiber intake. Contact primary care provider if you have not had a bowel movement within 48 hours after discharge 9. No anti-inflammatory medication until discussed at first post operative visit, this including Motrin, Aleve, Mobic, Diclofenac. 10. Follow up in office at 2 weeks postop with Erasto Mac PA-C/Vish Peña 11. Follow up with your primary care doctor 7-10 days after discharge. 12. Contact [facility] with any questions, . Procedures: Left total knee arthroplasty Patient Condition at Discharge: Good Plan - Discharge Summary Discharge Rx Participant: No New Discharge Prescriptions: New HYDROcodone/APAP 7.5-325MG [Nicolaus 7.5] 1 each PO Q6HR PRN #28 tab PRN Reason: Pain Sennosides/Docusate Sodium [Senna-S 8.6-50 mg Tablet] 2 each PO DAILY PRN #30 tablet PRN Reason: Constipation Aspirin [Adult Low Dose Aspirin EC] 81 mg PO BID #60 tab No Action metFORMIN HCL [metFORMIN HCL ER] 1,000 mg PO BID@0800,1600 Propranolol [Inderal] 10 mg PO BID@0800,2200 Cyclobenzaprine [Flexeril] 10 mg PO BID@0800,1600 Simvastatin [Zocor] 40 mg PO HS Ibuprofen 600 mg PO BID sitaGLIPtin [Januvia] 100 mg PO QAM Fenofibrate 160 mg PO DAILY Magnesium 250 mg PO DAILY lisinopriL [Zestril] 5 mg PO HS Dapagliflozin Propanediol [Farxiga] 10 mg PO QAM Discharge Medication List Propranolol [Inderal] 10 mg PO BID@0800,2200 09/07/16 [History] metFORMIN HCL [metFORMIN HCL ER] 1,000 mg PO BID@0800,1600 09/07/16 [History] Cyclobenzaprine [Flexeril] 10 mg PO BID@0800,1600 01/06/24 [History] Fenofibrate 160 mg PO DAILY 01/06/24 [History] Magnesium 250 mg PO DAILY 01/06/24 [History] Simvastatin [Zocor] 40 mg PO HS 01/06/24 [History] sitaGLIPtin [Januvia] 100 mg PO QAM 01/06/24 [History] Dapagliflozin Propanediol [Farxiga] 10 mg PO QAM 07/11/24 [History] Ibuprofen 600 mg PO BID 07/11/24 [History] lisinopriL [Zestril] 5 mg PO HS 07/11/24 [History] Aspirin [Adult Low Dose Aspirin EC] 81 mg PO BID #60 tab 07/18/24 [Rx] HYDROcodone/APAP 7.5-325MG [Nicolaus 7.5] 1 each PO Q6HR PRN #28 tab 07/18/24 [Rx] Sennosides/Docusate Sodium [Senna-S 8.6-50 mg Tablet] 2 each PO DAILY PRN #30 tablet 07/18/24 [Rx] Follow up Appointment(s)/Referral(s): Thanh Mac PAC [PHYSICIAN CLINICAL SUPPORT NURSE] - 08/01/24 3:20 pm [facility], [NON-STAFF] - As Needed Patient Instructions/Handouts: How to Use an Incentive Spirometer (ED), How to Use an Incentive Spirometer (DC) Activity/Diet/Wound Care/Special Instructions: orthopedic Discharge Instructions: 1. Wound care and infection precautions, keep incision dry and covered while showering, no lotions, creams, moisturizers. No soaking, pools, hot tubs. Do not scrub over incision. 2. Weight-bear as tolerated with walker / cane until follow-up. 3. Ice and elevate when necessary. Do not exceed 20 minutes per hour with ice pack. 4. Utilize compression sleeve until seen at first follow up appointment. 5. Pain meds and anticoagulants per prescription. 6. Pain medication has potential to cause constipation. Increase oral fluid and fiber intake. Contact primary care provider if you have not had a bowel movement within 48 hours after discharge. 7. No anti-inflammatory medication until discussed at first post operative visit, this including Motrin, Aleve, Mobic, Diclofenac. 8. Follow up in office at 2 weeks postop with Erasto Mac PA-C/Vish Levin PA-C 9. Follow up with your primary care doctor 7-10 days after discharge. 10. Contact [facility] with any questions, . Wound care instructions: 1. Okay to remove surgical dressing as of 07/23/2024 2. Okay to shower directly over the incision after removal of dressing Discharge Disposition: HOME WITH HOME HEALTH SERVICES
--- NOTE | 2024-07-18 13:41 | P.PN ---
Subjective Progress Note Date: 07/18/24 Patient is admitted for left knee arthroplasty patient is still coming out of anesthesia and not complaining of any pain at this time patient had any fever chills nausea vomiting abdominal pain dysuria patient has history of diabetes mellitus and hypertension blood pressure is slightly elevated at this time. 07/17/2024 Patient is evaluated in follow up. He is postoperative day #1 left knee arthroplasty. States the pain is controlled to the left knee. Has not worked with PT yet. No acute complaints at this time. White blood cell count 12.33. 07/18/2024 Patient evaluated today postoperative day #2 left knee total arthroplasty. No acute events overnight. States he is only having minimal pain to the left knee. Hemodynamically he is stable and cleared medically for DC to [facility] Review of Systems Constitutional: Denied any fatigue denied any fever. Cardio vascular: denied any chest pain, palpitations Gastrointestinal: denied any nausea, vomiting, diarrhea Pulmonary: Denied any shortness of breath cough Neurologic denied any new focal deficits All inpatient medications were reviewed and appropriate changes in these medications as dictated in the interval history and assessment and plan. PHYSICAL EXAMINATION: GENERAL: The patient is drowsy and oriented x3, not in any acute distress. Well developed, well nourished. HEENT: Pupils are round and equally reacting to light. EOMI. No scleral icterus. No conjunctival pallor. Normocephalic, atraumatic. No pharyngeal erythema. No thyromegaly. CARDIOVASCULAR: S1 and S2 present. No murmurs, rubs, or gallops. PULMONARY: Chest is clear to auscultation, no wheezing or crackles. ABDOMEN: Soft, nontender, nondistended, normoactive bowel sounds. No palpable organomegaly. MUSCULOSKELETAL: No joint swelling or deformity. EXTREMITIES: No cyanosis, clubbing, or pedal edema. NEUROLOGICAL: Gross neurological examination did not reveal any focal deficits. SKIN: No rashes. Assessment and plan -Left knee arthroplasty: Pain management as per primary service dvt to prophylaxis as per primary service -Type 2 diabetes mellitus patient will be resumed on her home regimen of Januvia, metformin, Farxiga and will add sliding scale. -Hypertension: Patient is on 5 mg of lisinopril at HS which will be increased to 10 mg HS. -Gastroesophageal reflux disease -Sleep apnea uses CPAP machine at home which he patient will be resumed and continue -Hyperlipidemia resumed on statin DVT prophylaxis: As per orthopedic surgery's aspirin 325 mg PO BID. GI prophylaxis Full Code The impression and plan of care has been dictated by Adeola Calero Nurse Practitioner as directed. Dr. Holly MD I have performed a history and physical examination and medical decision making of this patient, discussed the same with the dictator, and agree with the dictators assessment and plan as written, documented as a scribe. Based on total visit time, I have performed more than 50% of this visit. Objective - Vital Signs Vital signs: Vital Signs Temp 97.8 F 07/18/24 06:37 Pulse 94 07/18/24 07:34 Resp 16 07/18/24 07:34 BP 130/79 07/18/24 06:37 Pulse Ox 95 07/18/24 00:40 FiO2 Intake & Output 07/17/24 07/18/24 07/18/24 18:59 06:59 18:59 Intake Total 120 Output Total 250 400 Balance -250 -280 Intake: Oral 120 Output: Urine 250 400 Other: Voiding Method Urinal Urinal # Voids 6 1 # Bowel Movements 1 - Labs CBC & Chem 7: 07/17/24 04:26 Labs: Abnormal Lab Results - Last 24 Hours (Table) 07/17/24 07/17/24 07/18/24 Range/Units 16:33 20:55 05:48 POC Glucose (mg/dL) 191 H 145 H 131 H (70-110) mg/dL 07/18/24 Range/Units 11:09 POC Glucose (mg/dL) 115 H (70-110) mg/dL Assessment and Plan Time with Patient: Less than 30
[2024-07-18] MEDS ORDERED: lisinopriL 10 MG TAB PO SCH (21:00)
== END 2024-07-18 15:40 ==
LOC: OR 07:41 → 4SSUR 07:42
PROVIDERS: ADMIT Orthopaedic Surgery; ATTEND Orthopaedic Surgery
DX: M17.12 Unilateral primary osteoarthritis, left knee (principal); I10 Essential (primary) hypertension; E78.5 Hyperlipidemia, unspecified; E11.9 Type 2 diabetes mellitus without complications; G89.18 Other acute postprocedural pain; G47.30 Sleep apnea, unspecified; K21.9 Gastro-esophageal reflux disease without esophagitis; L40.9 Psoriasis, unspecified; Z79.84 Long term (current) use of oral hypoglycemic drugs; Z79.899 Other long term (current) drug therapy
CPT/HCPCS: 64448; 64999; 85025

== ENCOUNTER → 2024-11-26 | Outpatient (CLI) | payer MEDICARE ==
--- NOTE | 2024-11-26 15:25 | US ---
EXAMINATION TYPE: US thyroid st tissue head/neck DATE OF EXAM: 11/26/2024 COMPARISON: NONE CLINICAL INDICATION: Male, 54 years old with history of R59.0 LOCALIZED ENLARGED LYMPH NODES; Swellin g per patient. Patient cannot specify certain area. Patient also states he has trouble swallowing. Ex am is for enlarged lymph nodes. TECHNIQUE: Grayscale and color Doppler imaging of the neck soft tissue. Scanned bilateral and midline neck. Appearance of a few lymph nodes. #1 seen right neck: 2.2 x 0.8 x 0.6 cm. #2 seen right submandibular: 1.0 x 0.7 x0.6 cm. These demonstrate normal central fatty hilum. Incidental finding: Hypoechoic nodule seen left thyroid lobe: 2.7 x 1.9 x 2.2 cm. No obvious large nodule seen in right lobe, however, full thyroid ultrasound not performed. IMPRESSION: 1. Mildly prominent benign-appearing right neck and right submandibular lymph nodes measuring less t ibrahim 1 cm short axis. 2. 2.7 left thyroid lobe nodule. Further evaluation with dedicated thyroid ultrasound is recommended . [facility], , 11/26/2024 3:23 PM
== END | disposition home or self-care (01) ==
LOC: RADUSWWP 14:24
PROVIDERS: ATTEND Family Medicine
DX: R59.0 Localized enlarged lymph nodes (principal); R13.10 Dysphagia, unspecified; E04.1 Nontoxic single thyroid nodule
CPT/HCPCS: 76536

== ENCOUNTER 2025-02-19 08:00 | Day surgery (SDC) | payer MEDICARE, OTHER ==
[2025-02-19 09:02] VITALS: TEMP 98.1
[2025-02-19 10:03] VITALS: BP 135/80; PULSE 84; RESP 18
--- NOTE | 2025-02-19 11:01 | US ---
EXAMINATION TYPE: US FNA thyroid first lesion DATE OF EXAM: 02/19/2025 9:54 AM CLINICAL INDICATION:Male, 54 years old with history of E04.1 NONTOXIC SINGLE THYROID NODULE; TR 4, th yroid nodule. COMPARISON: Prior thyroid ultrasound December 26, 2024 ATTENDING: Dr. Uday Drew PROCEDURE: Informed consent was obtained. The risks and benefits of the procedure were discussed with the patien t including possibility of nondiagnostic results. The site was marked. Timeout procedure was performe d Ultrasound imaging redemonstrates approximately 2.5 cm cm predominantly solid slightly hypoechoic les ion mid pole level left thyroid. The patient was prepped, draped in the usual sterile fashion, and locally anesthetized with 1% lidoca ine. Five fine needle aspiration were then performed with a 25 gauge needle. Samples were sent to [facility] pathology department for further analysis. Patient tolerated the procedure without incident and wa s sent home in stable condition. IMPRESSION: Successful ultrasound guided fine needle aspiration. Intermediate index of suspicion noted at time of procedure. [facility], , 02/19/2025 10:59 AM
== END 2025-02-19 10:00 | disposition home or self-care (01) ==
LOC: RADPROMAIN 08:00
PROVIDERS: ATTEND Family Medicine
DX: E04.1 Nontoxic single thyroid nodule (principal)
CPT/HCPCS: 10005; 88173; 88305